=== PATIENT | male | born 1950 | race Caucasian/White ===

== ENCOUNTER → 2017-03-13 | Outpatient (REF) | payer BC, MEDICARE ==
[~2017-03-13] MED LIST: ASPI81TA83 OR; SIMV10TA2 OR; VIT D 2000 PO
[2017-03-13 11:07] LABS: BASO % 0.7 % (0.0-1.0); EOS # 0.2 K/mm3 (0.0-0.50); EOS % 5.4 % (0.0-3.0); LARGE UNSTAINED CELL # 0.1 K/mm3 (0.0-0.4); LARGE UNSTAINED CELL % 2.5 % (0.0-4.0); LYMPH # 1.4 K/mm3 (1.5-4.5); MEAN CORPUSCULAR HGB CONC 34.4 g/dl (32.0-36.5); MEAN CORPUSCULAR VOLUME 87.1 fl (80.0-96.0); MONO # 0.3 K/mm3 (0.0-0.8); MONO % 5.8 % (0.0-5.0); NEUTROPHILS # 2.7 K/mm3 (1.8-7.7); NEUTROPHILS % 57.7 % (36.0-66.0); PLATELET COUNT, AUTOMATED 226 k/mm3 (150-450); RED CELL DISTRIBUTION WIDTH 13.2 % (11.5-14.5); WHITE BLOOD COUNT 4.7 K/mm3 (4.0-10.0)
[2017-03-13 11:32] LABS: VITAMIN B12 LEVEL 233 PG/ML (247-911)
[2017-03-13 11:36] LABS: ALBUMIN/GLOBULIN RATIO 1.33 (1.00-1.93); ALKALINE PHOSPHATASE 72 U/L (45-117); ALT/SGPT 17 U/L (12-78); ANION GAP 7 MEQ/L (8-16); AST/SGOT 18 U/L (15-37); BILIRUBIN,TOTAL 0.4 MG/DL (0.2-1.0); BLOOD UREA NITROGEN 10 MG/DL (7-18); CALCIUM LEVEL 8.8 MG/DL (8.8-10.2); CARBON DIOXIDE LEVEL 28 MEQ/L (21-32); CHLORIDE LEVEL 102 MEQ/L (98-107); CHOLESTEROL LEVEL 124 MG/DL (<200); CREATININE FOR GFR 0.94 MG/DL (0.70-1.30); GLOMERULAR FILTRATION RATE > 60.0 (>49); GLUCOSE, FASTING 86 MG/DL (80-110); POTASSIUM SERUM 4.4 MEQ/L (3.5-5.1); SODIUM LEVEL 137 MEQ/L (136-145); TRIGLYCERIDES LEVEL 98 MG/DL (<150)
[2017-03-14 12:00] LABS: FERRITIN 62 NG/ML (26-388); PERCENT SATURATION 25.6 % (19.7-37.4); TOTAL IRON BINDING CAPACITY 332 UG/DL (250-450)
== END ==
LOC: M LABDRAW1 10:47
PROVIDERS: ATTEND Internal Medicine
DX: D64.9 Anemia, unspecified (principal); I10 Essential (primary) hypertension; E78.00 Pure hypercholesterolemia, unspecified; R53.83 Other fatigue; Z12.5 Encounter for screening for malignant neoplasm of prostate; Z11.59 Encounter for screening for other viral diseases
CPT/HCPCS: 36415; 80053; 80061; 82306; 82607; 82728; 83036; 83550; 84443; 85025; 86803; G0103

== ENCOUNTER → 2017-09-03 | Outpatient (REF) | payer BC, MEDICARE ==
[2017-09-03 12:15] LABS: DRVV SCREEN 34.8 SEC
[2017-09-03 12:28] LABS: PTT LUPUS TYPE ANTICOAG SCREEN 0.9 (0-1.2)
[2017-09-03 12:30] LABS: ALBUMIN 3.9 GM/DL (3.2-5.2); ALBUMIN/GLOBULIN RATIO 1.39 (1.00-1.93); ALKALINE PHOSPHATASE 76 U/L (45-117); ALT/SGPT 17 U/L (12-78); ANION GAP 4 MEQ/L (8-16); AST/SGOT 19 U/L (7-37); BILIRUBIN,TOTAL 0.3 MG/DL (0.2-1.0); BLOOD UREA NITROGEN 12 MG/DL (7-18); CALCIUM LEVEL 8.9 MG/DL (8.8-10.2); CARBON DIOXIDE LEVEL 28 MEQ/L (21-32); CHLORIDE LEVEL 107 MEQ/L (98-107); CHOLESTEROL LEVEL 116 MG/DL (<200); CHOLESTEROL RISK RATIO 2.577 (<5); GLOMERULAR FILTRATION RATE > 60.0 (>49); GLUCOSE, FASTING 97 MG/DL (80-110); HDL CHOLESTEROL 45 MG/DL (>40); LDL CHOLESTEROL 55.8 MG/DL (<100); NON-HDL-C 71 MG/DL; POTASSIUM SERUM 4.4 MEQ/L (3.5-5.1); RHEUMATOID FACTOR QUANT < 10.0 IU/ML (0-15.0); SODIUM LEVEL 139 MEQ/L (136-145); TOTAL PROTEIN 6.7 GM/DL (6.4-8.2); TRIGLYCERIDES LEVEL 76 MG/DL (<150)
[2017-09-03 12:40] LABS: ESTIMATED AVERAGE GLUCOSE 123 MG/DL (60-110); HEMOGLOBIN A1c 5.9 %
[2017-09-03 13:05] LABS: ERYTHROCYTE SEDIMENTATION RATE 5 mm/hr (0-20)
[2017-09-03 13:08] LABS: BASO % 0.4 % (0.0-1.0); EOS # 0.4 10^3/uL (0.0-0.50); EOS % 8.3 % (0.0-3.0); HEMATOCRIT 40.7 % (42.0-52.0); HEMOGLOBIN 13.4 g/dl (14.0-18.0); IMMATURE GRANULOCYTE % 0.2 % (0-0); LYMPH # 1.7 10^3/uL (1.5-4.5); LYMPH % 35.9 % (24.0-44.0); MEAN CORPUSCULAR HEMOGLOBIN 28.9 pg (27.0-33.0); MEAN CORPUSCULAR HGB CONC 32.9 g/dl (32.0-36.5); MEAN CORPUSCULAR VOLUME 87.9 fl (80.0-96.0); MONO # 0.4 10^3/uL (0.0-0.8); MONO % 8.9 % (0.0-5.0); NEUTROPHILS # 2.2 10^3/uL (1.8-7.7); NEUTROPHILS % 46.3 % (36.0-66.0); PLATELET COUNT, AUTOMATED 251 10^3/uL (150-450); RED BLOOD COUNT 4.63 10^6/uL (4.30-6.10); RED CELL DISTRIBUTION WIDTH 13.6 % (11.5-14.5); WHITE BLOOD COUNT 4.7 10^3/uL (4.0-10.0)
[2017-09-03 13:28] LABS: FOLATE 8.9 NG/ML (>5.4); TOTAL 25(OH) VITAMIN D 41.2 NG/ML (30.0-100.0); VITAMIN B12 LEVEL 586 PG/ML (247-911)
[2017-09-06 11:06] LABS: ALBUMIN 4.03 GM/DL (3.29-5.55); ALBUMIN % 60.2 % (55.8-66.1); ALPHA-1-GLOBULINS 0.27 GM/DL (0.17-0.41); ALPHA-2-GLOBULINS 0.68 GM/DL (0.42-0.99); ALPHA-2-GLOBULINS % 10.1 % (7.1-11.8); BETA-1-GLOBULINS 0.43 GM/DL (0.28-0.60); BETA-1-GLOBULINS % 6.4 % (4.7-7.2); BETA-2-GLOBULINS 0.31 GM/DL (0.19-0.55); BETA-2-GLOBULINS % 4.7 % (3.2-6.5); GAMMA GLOBULIN % 14.6 % (11.1-18.8); GAMMA GLOBULINS 0.98 GM/DL (0.65-1.58)
[2017-09-09 14:11] LABS: ANTINUCLEAR ANTIBODIES DIRECT Negative (Negative); VITAMIN B6,PYRIDOXAL PHOSPHATE 12.8 ug/L (5.3-46.7)
[2017-09-09 14:11] LABS: VITAMIN B1 LEVEL WHOLE BLOOD 100.2 nmol/L (66.5-200.0)
== END ==
LOC: M LABDRAW1 10:32
DX: R51 Headache (principal)
CPT/HCPCS: 82746

== ENCOUNTER → 2018-02-05 | Outpatient (REF) | payer BC, MEDICARE ==
[2018-02-05 13:06] LABS: HEMOGLOBIN 14.2 g/dl (13.5-17.5); MEAN CORPUSCULAR HEMOGLOBIN 28.5 pg (27.0-33.0); MEAN CORPUSCULAR HGB CONC 32.3 g/dl (32.0-36.5); MEAN CORPUSCULAR VOLUME 88.4 fl (80.0-96.0); PLATELET COUNT, AUTOMATED 272 10^3/uL (150-450); RED BLOOD COUNT 4.98 10^6/uL (4.30-6.10); WHITE BLOOD COUNT 6.4 10^3/uL (4.0-10.0)
[2018-02-05 13:24] LABS: ALBUMIN 3.7 GM/DL (3.2-5.2); ALBUMIN/GLOBULIN RATIO 1.09 (1.00-1.93); ALKALINE PHOSPHATASE 76 U/L (45-117); ALT/SGPT 23 U/L (12-78); ANION GAP 8 MEQ/L (8-16); AST/SGOT 27 U/L (7-37); BILIRUBIN,TOTAL 0.4 MG/DL (0.2-1.0); BLOOD UREA NITROGEN 14 MG/DL (7-18); CALCIUM LEVEL 8.7 MG/DL (8.8-10.2); CARBON DIOXIDE LEVEL 29 MEQ/L (21-32); CHLORIDE LEVEL 106 MEQ/L (98-107); CHOLESTEROL LEVEL 147 MG/DL (<200); CHOLESTEROL RISK RATIO 2.882 (<5); CREATININE FOR GFR 0.91 MG/DL (0.70-1.30); GLOMERULAR FILTRATION RATE > 60.0 (>49); GLUCOSE, FASTING 80 MG/DL (70-100); HDL CHOLESTEROL 51 MG/DL (>40); LDL CHOLESTEROL 80.4 MG/DL (<100); NON-HDL-C 96 MG/DL; POTASSIUM SERUM 4.4 MEQ/L (3.5-5.1); PSA SCREENING 0.17 NG/ML (< 4.0); SODIUM LEVEL 143 MEQ/L (136-145); TOTAL PROTEIN 7.1 GM/DL (6.4-8.2); TRIGLYCERIDES LEVEL 78 MG/DL (<150)
[2018-02-05 13:26] LABS: ERYTHROCYTE SEDIMENTATION RATE 2 mm/hr (0-20)
[2018-02-05 13:38] LABS: ESTIMATED AVERAGE GLUCOSE 114 MG/DL (60-110); HEMOGLOBIN A1c 5.6 %
[2018-02-06 07:31] LABS: AMYLASE 69 U/L (25-115); LIPASE 114 U/L (73-393)
[2018-02-07 00:09] LABS: H PYLORI SERUM QUANT IGM <9.0 units (0.0-8.9)
== END ==
LOC: M LABDRAW1 12:32
DX: Z12.5 Encounter for screening for malignant neoplasm of prostate (principal); R10.12 Left upper quadrant pain; Z79.899 Other long term (current) drug therapy; I10 Essential (primary) hypertension; E78.00 Pure hypercholesterolemia, unspecified
CPT/HCPCS: 82150

== ENCOUNTER → 2018-02-11 | Outpatient (CLI) | payer BC, MEDICARE ==
[~2018-02-11] MED LIST changes: -ASPI81TA83 OR; +GASTROGRAFIN SOLUTION 30ML (Q9963) As Ordered; +ISOVUE-370 76% 100ML VIAL (Q9967) As Ordered; +READI-CAT 2 As Ordered; -SIMV10TA2 OR; -VIT D 2000 PO
== END ==
LOC: M RAD 15:52
DX: R10.12 Left upper quadrant pain (principal)
CPT/HCPCS: Q9967

== ENCOUNTER → 2019-02-04 | Outpatient (CLI) | payer BC ==
[~2019-02-04] MED LIST changes: +ASPI81TA83 OR; -GASTROGRAFIN SOLUTION 30ML (Q9963) As Ordered; -ISOVUE-370 76% 100ML VIAL (Q9967) As Ordered; -READI-CAT 2 As Ordered; +SIMV10TA2 OR; +VIT D 2000 PO
--- NOTE | 2019-02-05 07:17 | REP ---
CHEST, TWO VIEWS: COMPARISON: 02/17/2009 There is no evidence of acute infiltrate. No pleural effusion is seen. The heart is normal in size. The mediastinal silhouette is unremarkable. The visualized osseous structures are intact. There are degenerative changes of the spine. IMPRESSION: No acute pulmonary disease. Electronically Signed by Jonathan Maldonado MD 02/05/2019 09:15 A
== END ==
LOC: M RAD 17:09
PROVIDERS: ATTEND Pediatrics
DX: R05 Cough (principal)

== ENCOUNTER → 2019-02-24 | Outpatient (CLI) | payer BC ==
--- NOTE | 2019-02-24 08:54 | REP ---
Pelvis, left hip: Three views. History: Iliac crest pain. Comparison is made with images from CT study of the abdomen February 11, 2018. Findings: AP view of the pelvis and AP and frog-leg views of the left hip are presented. The femoral heads are smooth and rounded and hip joint spaces are preserved. Transitionalized lumbosacral junction is seen. SI joints are unremarkable. Laminectomy has been performed at L3. There is spurring along the anterolateral contour of the iliac bone bilaterally consistent with muscle attachment spurring. This is bilateral, symmetric and benign in appearance. Bones, joints and soft tissues are otherwise unremarkable. Impression: Mild muscle attachment spurring in the region of the anterior inferior iliac spine bilaterally and symmetrically. Otherwise unremarkable pelvis, left hip radiographs. Transitionalized lumbosacral junction. Laminectomy defect in the lower lumbar spine. Electronically Signed by Eliezer Jerez MD 02/24/2019 04:43 P
== END ==
LOC: M RAD 08:00
PROVIDERS: ATTEND Specialist
DX: M25.552 Pain in left hip (principal); M77.9 Enthesopathy, unspecified

== ENCOUNTER → 2019-03-18 | Outpatient (REF) | payer BC, MEDICARE ==
[2019-03-18 12:48] LABS: HEMATOCRIT 41.6 % (42.0-52.0); HEMOGLOBIN 13.6 g/dl (13.5-17.5); MEAN CORPUSCULAR HEMOGLOBIN 28.5 pg (27.0-33.0); MEAN CORPUSCULAR HGB CONC 32.7 g/dl (32.0-36.5); MEAN CORPUSCULAR VOLUME 87.2 fl (80.0-96.0); PLATELET COUNT, AUTOMATED 246 10^3/uL (150-450); RED BLOOD COUNT 4.77 10^6/uL (4.30-6.10); WHITE BLOOD COUNT 4.5 10^3/uL (4.0-10.0)
[2019-03-18 12:51] LABS: ALBUMIN 3.9 GM/DL (3.2-5.2); ALT/SGPT 17 U/L (12-78); BILIRUBIN,TOTAL 0.4 MG/DL (0.2-1.0); BLOOD UREA NITROGEN 14 MG/DL (7-18); C REACTIVE PROTEIN QUANTITATIV < 0.30 MG/DL (0.00-0.30); CALCIUM LEVEL 8.9 MG/DL (8.8-10.2); CARBON DIOXIDE LEVEL 27 MEQ/L (21-32); CHLORIDE LEVEL 106 MEQ/L (98-107); CHOLESTEROL LEVEL 135 MG/DL (<200); CREATININE FOR GFR 0.95 MG/DL (0.70-1.30); GLOMERULAR FILTRATION RATE > 60.0 (>49); GLUCOSE, FASTING 84 MG/DL (70-100); HDL CHOLESTEROL 50 MG/DL (>40); LDL CHOLESTEROL 74 MG/DL (<100); NON-HDL-C 85 MG/DL; POTASSIUM SERUM 4.3 MEQ/L (3.5-5.1); SODIUM LEVEL 140 MEQ/L (136-145); TOTAL PROTEIN 7.2 GM/DL (6.4-8.2); TRIGLYCERIDES LEVEL 57 MG/DL (<150)
[2019-03-18 12:58] LABS: TOTAL 25(OH) VITAMIN D 41.8 NG/ML (30.0-100.0)
[2019-03-18 12:59] LABS: FOLATE 10.3 NG/ML; VITAMIN B12 LEVEL 385 PG/ML
[2019-03-18 13:43] LABS: HEMOGLOBIN A1c 5.8 %
[2019-03-18 13:55] LABS: ERYTHROCYTE SEDIMENTATION RATE 5 mm/hr (0-20)
== END ==
LOC: M LABDRAW1 12:10
PROVIDERS: ATTEND Internal Medicine
DX: E55.9 Vitamin D deficiency, unspecified (principal); Z13.1 Encounter for screening for diabetes mellitus; E53.8 Deficiency of other specified B group vitamins; I10 Essential (primary) hypertension; E78.00 Pure hypercholesterolemia, unspecified; Z79.899 Other long term (current) drug therapy; Z12.5 Encounter for screening for malignant neoplasm of prostate; M89.8X8 Other specified disorders of bone, other site
CPT/HCPCS: 36415; 80053; 80061; 82306; 82607; 82746; 83036; 83735; 85027; 85652; 86140; G0103

== ENCOUNTER → 2019-06-12 | Outpatient (REF) | payer BC, MEDICARE ==
[2019-06-12 11:22] LABS: BLOOD UREA NITROGEN 17 MG/DL (7-18); CALCIUM LEVEL 9.3 MG/DL (8.8-10.2); CARBON DIOXIDE LEVEL 31 MEQ/L (21-32); CHLORIDE LEVEL 105 MEQ/L (98-107); CREATININE FOR GFR 0.98 MG/DL (0.70-1.30); GLOMERULAR FILTRATION RATE > 60.0 (>42); GLUCOSE, FASTING 96 MG/DL (70-100); POTASSIUM SERUM 4.9 MEQ/L (3.5-5.1); SODIUM LEVEL 141 MEQ/L (136-145)
[2019-06-12 12:35] LABS: HEMOGLOBIN A1c 5.6 %
== END ==
LOC: M SFHCPLAZ 08:42
PROVIDERS: ATTEND Internal Medicine
DX: Z01.818 Encounter for other preprocedural examination (principal); E78.00 Pure hypercholesterolemia, unspecified

== ENCOUNTER → 2019-07-28 | Outpatient (CLI) | payer BC ==
--- NOTE | 2019-07-28 11:09 | REP ---
MRI left hip and pelvis and iliac crest. Without contrast. History: Iliac crest bone pain and hip pain on the left. The patient describes pain along the superior margin of the iliac crest on the left laterally. Comparison radiographs February 24, 2019. Comparison is made with CT images obtained of the abdomen, not the pelvis, from February 11, 2018. Technique: Large field of view bilateral coronal T1 and STIR T2 sequences are acquired. In addition, smaller field of view high resolution T2 fat sat imaging is obtained of the left hip in all three planes. The axial T2 fat sat sequence is extended cranially to include the iliac crest. Findings: Cortical and medullary bone signal intensity is normal in the proximal femurs and in the visualized bony pelvic ring. There is no evidence to suggest avascular necrosis. There is some acetabular and femoral spurring mild in degree bilaterally consistent with bilateral hip osteoarthritis. Tiny subcortical cysts are seen along the superior and inferior margin of the femoral head on the left. Chondromalacia is noted on small field of view images on the left. There are some degenerative changes bilaterally in the acetabular labral cartilage. There is a small amount of joint fluid in the right hip. No peritrochanteric fluid collection is appreciated on either side. The pelvic radiographs demonstrate a tiny exostosis at the level of the anterior inferior iliac spine, rectus femoris insertion. At this level, there is a tiny amount of T2 hyperintensity in the lateral aspect of the tendon insertion. The bulk of the tendon insertion is unremarkable. This T2 signal intensity is quite subtle. There is actually more conspicuous fluid on T2-weighted axial images along the course of the distal iliopsoas muscle and tendon above the left hip and distal to the left hip, just above the insertion on the lesser trochanter. This may reflect iliopsoas tendinosis tendonitis change. This is considerably inferior to the level of the patient's pain. T2-weighted scans demonstrate minimal hypertrophy of the central gland in the prostate with some T2 hyperintense cysts or nodules. Impression: 1. Mild bilateral hip joint osteoarthritis. Chondromalacia and subcortical cyst formation. Degenerative acetabular labral cartilage changes. 2. There is some fluid above and below the hip along the course of the iliopsoas on the left extending down to the distal insertion on the lesser trochanter. 3. Very subtle amount of fluid is seen at the rectus femoris insertion, laterally, at the anterior inferior iliac spine. No other abnormality. Electronically Signed by Eliezer Jerez MD 07/28/2019 11:01 A
== END ==
LOC: M RAD 07:21
PROVIDERS: ATTEND Internal Medicine
DX: M16.0 Bilateral primary osteoarthritis of hip (principal); M85.48 Solitary bone cyst, other site; M94.252 Chondromalacia, left hip

== ENCOUNTER → 2020-03-03 | Outpatient (REF) | payer BC, MEDICARE ==
[2020-03-03 13:00] LABS: BASO % 0.6 % (0.0-1.0); EOS # 0.6 10^3/uL (0.0-0.5); EOS % 9.3 % (0.0-3.0); HEMATOCRIT 45.8 % (42.0-52.0); HEMOGLOBIN 14.3 g/dl (13.5-17.5); LYMPH # 2.4 10^3/uL (1.5-5.0); LYMPH % 36.5 % (24.0-44.0); MEAN CORPUSCULAR HEMOGLOBIN 28.7 pg (27.0-33.0); MEAN CORPUSCULAR HGB CONC 31.2 g/dl (32.0-36.5); MONO # 0.5 10^3/uL (0.0-0.8); MONO % 7.6 % (0.0-5.0); NEUTROPHILS % 45.8 % (36.0-66.0); PLATELET COUNT, AUTOMATED 254 10^3/uL (150-450); RED BLOOD COUNT 4.98 10^6/uL (4.30-6.10); WHITE BLOOD COUNT 6.6 10^3/uL (4.0-10.0)
[2020-03-03 13:07] LABS: HEMATOCRIT 44.9 % (42.0-52.0); HEMOGLOBIN 14.5 g/dl (13.5-17.5); MEAN CORPUSCULAR HEMOGLOBIN 29.5 pg (27.0-33.0); MEAN CORPUSCULAR HGB CONC 32.3 g/dl (32.0-36.5); MEAN CORPUSCULAR VOLUME 91.3 fl (80.0-96.0); PLATELET COUNT, AUTOMATED 254 10^3/uL (150-450); RED BLOOD COUNT 4.92 10^6/uL (4.30-6.10); WHITE BLOOD COUNT 6.4 10^3/uL (4.0-10.0)
[2020-03-03 13:35] LABS: TOTAL 25(OH) VITAMIN D 36.9 NG/ML (30.0-100.0)
[2020-03-03 13:41] LABS: ALBUMIN 4.1 GM/DL (3.2-5.2); ALT/SGPT 21 U/L (12-78); BILIRUBIN,TOTAL 0.6 MG/DL (0.2-1.0); BLOOD UREA NITROGEN 15 MG/DL (7-18); CALCIUM LEVEL 9.2 MG/DL (8.8-10.2); CARBON DIOXIDE LEVEL 29 MEQ/L (21-32); CHLORIDE LEVEL 105 MEQ/L (98-107); CHOLESTEROL LEVEL 138 MG/DL (<200); CHOLESTEROL RISK RATIO 3.136 (<5); CREATININE FOR GFR 1.03 MG/DL (0.70-1.30); GLOMERULAR FILTRATION RATE > 60.0 (>42); GLUCOSE, FASTING 86 MG/DL (70-100); HDL CHOLESTEROL 44 MG/DL (>40); LDL CHOLESTEROL 76 MG/DL (<100); MAGNESIUM LEVEL 2.2 MG/DL (1.8-2.4); NON-HDL-C 94 MG/DL; POTASSIUM SERUM 4.9 MEQ/L (3.5-5.1); SODIUM LEVEL 139 MEQ/L (136-145); TOTAL PROTEIN 7.4 GM/DL (6.4-8.2); TRIGLYCERIDES LEVEL 89 MG/DL (<150)
[2020-03-03 17:41] LABS: HEMOGLOBIN A1c 5.3 %
== END ==
LOC: M PLALAB 08:02
PROVIDERS: ATTEND Internal Medicine
DX: R10.12 Left upper quadrant pain (principal); I10 Essential (primary) hypertension; Z13.1 Encounter for screening for diabetes mellitus; E78.00 Pure hypercholesterolemia, unspecified; Z12.5 Encounter for screening for malignant neoplasm of prostate; R00.2 Palpitations; Z79.899 Other long term (current) drug therapy
CPT/HCPCS: 36415; 80053; 80061; 82306; 82607; 83036; 83735; 84443; 85025; 85027; G0103

== ENCOUNTER → 2020-09-28 | Outpatient (REF) | payer BC, MEDICARE | LOC: M SFHCPLAZ 08:08 | PROVIDERS: ATTEND Internal Medicine | DX: Z20.828 Contact with and (suspected) exposure to other viral communicable diseases (principal) ==

== ENCOUNTER → 2021-03-08 | Outpatient (CLI) | payer BC ==
[2021-03-08 10:24] LABS: BASO % 0.7 % (0.0-1.0); EOS # 0.4 10^3/uL (0.0-0.5); EOS % 6.7 % (0.0-3.0); HEMATOCRIT 43.9 % (42.0-52.0); HEMOGLOBIN 14.1 g/dl (13.5-17.5); LYMPH # 2.5 10^3/uL (1.5-5.0); LYMPH % 42.3 % (24.0-44.0); MEAN CORPUSCULAR HEMOGLOBIN 28.6 pg (27.0-33.0); MEAN CORPUSCULAR HGB CONC 32.1 g/dl (32.0-36.5); MONO # 0.5 10^3/uL (0.0-0.8); MONO % 9.2 % (2.0-8.0); NEUTROPHILS # 2.4 10^3/uL (1.5-8.5); NEUTROPHILS % 40.9 % (36.0-66.0); PLATELET COUNT, AUTOMATED 254 10^3/uL (150-450); RED BLOOD COUNT 4.93 10^6/uL (4.30-6.10); WHITE BLOOD COUNT 5.9 10^3/uL (4.0-10.0)
[2021-03-08 10:45] LABS: HEMOGLOBIN A1c 5.6 %
[2021-03-08 10:54] LABS: ALBUMIN 4.2 GM/DL (3.2-5.2); ALT/SGPT 24 U/L (12-78); BILIRUBIN,TOTAL 0.6 MG/DL (0.2-1.0); BLOOD UREA NITROGEN 15 MG/DL (7-18); CALCIUM LEVEL 9.1 MG/DL (8.8-10.2); CARBON DIOXIDE LEVEL 32 MEQ/L (21-32); CHLORIDE LEVEL 105 MEQ/L (98-107); CHOLESTEROL LEVEL 145 MG/DL (<200); CHOLESTEROL RISK RATIO 2.636 (<5); CREATININE FOR GFR 0.98 MG/DL (0.70-1.30); GLOMERULAR FILTRATION RATE > 60.0 (>42); GLUCOSE, FASTING 90 MG/DL (70-100); HDL CHOLESTEROL 55 MG/DL (>40); LDL CHOLESTEROL 76 MG/DL (<100); MAGNESIUM LEVEL 2.2 MG/DL (1.8-2.4); NON-HDL-C 90 MG/DL; POTASSIUM SERUM 4.3 MEQ/L (3.5-5.1); SODIUM LEVEL 139 MEQ/L (136-145); TOTAL PROTEIN 7.1 GM/DL (6.4-8.2); TRIGLYCERIDES LEVEL 70 MG/DL (<150)
[2021-03-08 10:57] LABS: TOTAL 25(OH) VITAMIN D 46.5 NG/ML (30.0-100.0); VITAMIN B12 LEVEL 672 PG/ML (247-911)
== END ==
LOC: M PLALAB 07:52
PROVIDERS: ATTEND Internal Medicine
DX: Z00.00 Encounter for general adult medical examination without abnormal findings (principal); E78.00 Pure hypercholesterolemia, unspecified; I10 Essential (primary) hypertension; Z12.5 Encounter for screening for malignant neoplasm of prostate; E53.8 Deficiency of other specified B group vitamins; E55.9 Vitamin D deficiency, unspecified
CPT/HCPCS: 36415; 80053; 80061; 82306; 82607; 83036; 83735; 85025; G0103

== ENCOUNTER → 2021-03-27 | Outpatient (CLI) | payer BC, MEDICARE ==
[~2021-03-27] MED LIST changes: +ASPI81CH33 PO; +LISI10TA22 PO; +SIMV20TA22 PO
== END ==
LOC: M PLAIMG 08:26
PROVIDERS: ATTEND Internal Medicine
DX: M25.571 Pain in right ankle and joints of right foot (principal)

== ENCOUNTER → 2021-04-13 | Outpatient (CLI) | payer BC, MEDICARE ==
[~2021-04-13] MED LIST changes: -ASPI81CH33 PO; -LISI10TA22 PO; -SIMV20TA22 PO
--- NOTE | 2021-04-13 14:23 | REP ---
INDICATION: PAIN RT FOOT W/ ACQUIRED DEFORMITIES. COMPARISON: Comparison radiographs of the right ankle are from March 27, 2021. TECHNIQUE: Axial, coronal, and sagittal imaging planes utilized. T1 and T2 weighted sequences are obtained with and without fat saturation in the usual fashion. FINDINGS: There is mild plantar calcaneal spurring. Plantar fascia are smooth. There is no evidence of significant joint effusion. There are osteoarthritic changes at the ankle with subcortical cyst formation involving the lateral talar dome as well as the adjacent subcortical surface of the distal fibula and, to a lesser degree, the adjacent surface of the anterolateral tibial plafond. There is joint space narrowing in the tibiotalar articulation. There are similar subcortical cysts on either side of the central subtalar articulation. There is mild spurring and sclerosis associated with the talonavicular articulation. No significant joint effusion is seen. There is not felt to be evidence of osteochondritis desiccans. No evidence of loose body. Achilles tendon is normal in course caliber and signal intensity. No ligamentous disruption is seen at the ankle. Tibialis posterior tendon, flexor digitorum, and flexor hallucis longus tendons appear intact medially. The peroneus tendons appear intact. No evidence of extensor tendinopathy. IMPRESSION: Osteoarthritic changes involving the tibiotalar, talofibular, subtalar, and talonavicular articulations. There is arthritis associated subcortical cyst formation at these locations; particularly the lateral aspect of the tibiotalar articulation and the talofibular articulation. No evidence to suggest loose body or osteochondritis dissecans.. <Electronically signed by Azael Jerez > 04/13/21 [id number]
--- NOTE | 2021-04-13 14:44 | REP ---
INDICATION: PAIN RT FOOT W/ ACQUIRED DEFORMITIES. COMPARISON: Comparison radiographs of the right ankle are from March 27, 2021. TECHNIQUE: Axial, coronal, and sagittal imaging planes utilized. T1 and T2 weighted sequences are obtained with and without fat saturation. Right foot MRI study. FINDINGS: There are arthropathy associated subcortical cyst changes in the distal fibula, the lateral talar dome, and the anterolateral tibial plafond, see ankle MRI report this same date. The medial subtalar articulation is abnormal with irregularity and narrowing. I cannot exclude a fibrous talocalcaneal tarsal coalition versus medial facet subtalar joint osteoarthritis. There is mild osteoarthritic spurring and joint space narrowing in the talar navicular articulation. The plantar arch is somewhat shallow. There is plantar calcaneal spurring. Plantar fascia is smooth. No metatarsal or phalangeal abnormality is appreciated. There is a small quantity of fluid at the 1st MTP joint. No soft tissue mass or cyst is seen. IMPRESSION: Irregularity narrowing and subcortical cyst formation in the medial facet of the subtalar for fibrous joint, question talocalcaneal tarsal coalition versus osteoarthritis. There are osteo arthritis associated subcortical cysts formed at the ankle as described in the ankle MRI report. The plantar arch is somewhat shallow. Osteoarthritic spurring is also noted at the talonavicular articulation. <Electronically signed by Azael Jerez > 04/13/21 [id number]
== END ==
LOC: M PLAIMG 12:53
PROVIDERS: ATTEND Orthopaedic Surgery Adult Reconstructive Orthopaedic Surgery
DX: M19.071 Primary osteoarthritis, right ankle and foot (principal); M79.671 Pain in right foot; M21.6X1 Other acquired deformities of right foot

== ENCOUNTER → 2021-06-26 | Outpatient (CLI) | payer BC ==
[~2021-06-26] MED LIST changes: +ASPI81CH33 PO; +LISI10TA22 PO; +SIMV20TA22 PO
== END ==
LOC: M LABSMTC 10:18
PROVIDERS: ATTEND Anesthesiology
DX: Z01.812 Encounter for preprocedural laboratory examination (principal); Z11.52 Encounter for screening for COVID-19

== ENCOUNTER 2021-06-30 09:14 | Day surgery (SDC) | payer BC ==
[~2021-06-30] VITALS: Ht 172.7 cm; Wt 69.9 kg
[~2021-06-30 09:14] MED LIST changes: +NS 1,000 ML IV ONE
--- OUTSIDE RECORDS SUMMARY | 2021-06-30 09:19 | CCD | Continuity of Care Document ---
Author Author Gilda MA M.D Organization Unknown Address [address] [place] [id number] Phone [phone] Care Team Providers Care Wild Animal Caretaker Name Role Phone Pal Wheatley M.D. AUTM [phone] Problems Active Problems Provider Date Abdominal pain Jose Ma M.D. Onset: 05/23/20 21 Social History Type Date Description Comments Sex Unknown ETOH Use Occasionally Tobacco Use Start: Unknown Patient has never smoked Allergies and adverse reactions Active Allergies Criticality Reaction | Severity Comments Date Iodine Unable to assess criticality 05/23/2021 Contrast Dye Unable to assess criticality 05/23/2021 Medications Active Medications SIG Qnty Indications Ordering Provide r Date Pantoprazole Sodium 40mg Tablets D R 1 tab by mouth every morning 90tabs Jose Ma M.D. 05/23/2021 Lisinopril 10mg Tablets Pal Wheatley M.D. Simvastatin 20mg Tablets Take 1 Tablet By Mouth Every Evening Unknown Aspirin Low Dose 81mg Tablets DR Unknown Immunizations Description No Information Available Vital Signs Date Vital Result Comment 05/23/2021 8:54am Height 68 inches 5'8" Weight 156.00 lb BP Systolic 130 mmHg BP Diastolic 86 mmHg Heart Rate 86 /min BMI (Body Mass Index) 23.7 kg/m2 Weight 70.762 kg Body Temperature 97.7 F Results Description No Information Available Procedures Date Code Description Status 05/23/2021 55544 Office/Outpatient New Low MDM 30 -44 Minutes Completed Medical Devices Description No Information Available Encounters Type Date Location Provider Dx Diagnosis Office Visit 05/23/2021 8:45a Main Office Jose Ma M.D. R 10.9 Unspecified abdominal pain Assessments Date Code Description Provider 05/23/2021 R10.9 Abdominal pain Jose wallace M.D. Plan of Treatment Future Appointment(s):* 06/30/2021 1:45 pm - Jose Ma M.D. at Main Office 05/23/2021 - Jose Ma M.D.* R10.9 Abdominal pain* New Xrays:* CT Abd & Pelvis, Ordered: 05/23/21 * Comments:* 71 yo m who presents for a h/o upper, and left sided abdominal pain for the last 3 to 4 weeks. Last scopes were in 2013. Positive c/o abdominal pain mostly luq. Has daily symptoms. Weight is down. No c/o nausea/vomiting. Plan:1. Abdominal ct scan for early satiety/abdominal pain/weight loss.2. Colonoscopy /egd to be set up.3. Pantoprazole 40 mgs po qam.4. Heating pad. Functional Status Description No Information Available Mental Status Description No Information Available Referrals Description No Information Available
--- OUTSIDE RECORDS SUMMARY | 2021-06-30 09:19 | CCD ---
Author Author Antolin Schumacher MD [facility] Organization Antolin Schumacher MD [facility] Address [phone] [address] Phone Care Team Providers Care Director Of Channel Marketing Name Role Phone Winsome SANCHEZ, Antolin GUIDRY Unavailable [phone] Corry SANCHEZ, Pal PP [phone] Reason for Referral No Reason for Referral Recorded Problems Includes: Active, inactive, and resolved Problems All Visits Onset Date - Time Resolved Date - Time Provider Co ndition Status Pseudophakia 03/08/2020 - 12:00AM Antolin Schumacher MD, FACS Active Dry Eye Syndrome 03/06/2019 - 12:00AM Antolin clark MD, FACS Active Cataract Senile Cortical Bilateral 03/04/2018 - 12:00AM 03/08/20 20 - 7:23AM Antolin Schumacher MD, FACS Resolved Vitreous Disorders Degeneration 10/05/2015 - 12:00AM Antolin Schumacher MD, FACS 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 Antolin Albarran MD, FACS Active Cataract Senile Cortical 07/20/2015 - 12:00AM 03/08/2020 - 7:23A M Antolin Schumacher MD, FACS Resolved Note: of both eyes 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: 00AM Antolin Schumacher MD, FACS Active Cataract Senile Posterior Subcapsular Polar 07/20/2015 - 12: 00AM 03/08/2020 - 7:23AM Antolin Schumacher MD, FACS Resolved Note: of both eyes Cataract Senile Nuclear 07/20/2015 - 12:00AM 03/08/2020 - 7:23AM Antolin Paris MD, FACS Resolved Note: of both eyes Dry Eye Syndrome Both Eyes 07/20/2015 - 12:00AM Antolin Schumacher MD, FACS Inactive Plan of Treatment Future Appointments Date Time Location Provider 1 Year Follow-Up 05/01/2022 7:30AM Antolin Schumacher MD [facility] Antolin Schumacher MD, FACS Assessments Includes: Assessments for all patient encounters Findings Encounter Date Dry eye syndrome 1 Year Follow-Up with Antolin bertrand MD, FACS 03/08/2020 Pseudophakia 1 Year Follow-Up with Antolin bertrand MD, FACS 03/08/2020 Vitreous degeneration 1 Year Follow-Up with Antolin clark MD, FACS 03/08/2020 Cortical senile cataract 1 Year Follow-Up with Antolin Ashby MD, FACS 03/06/2019 Dry eye syndrome 1 Year Follow-Up with Antolin bertrand MD, FACS 03/06/2019 Nuclear senile cataract 1 Year Follow-Up with Antolin Dover MD, FACS 03/06/2019 Posterior subcapsular polar senile cataract 1 Year Fol low-Up with Antolin Schumacher MD, FACS 03/06/2019 Vitreous degeneration 1 Year Follow-Up with Antolin clark MD, FACS 03/06/2019 Bilateral cortical senile cataract 1 Year Follow-Up [facility] Antolin Schumacher MD, FACS 03/04/2018 Dry eye syndrome of both eyes 1 Year Follow-Up with Bubba Schumacher MD, FACS 03/04/2018 Nuclear senile cataract 1 Year Follow-Up with Antolin Dover MD, FACS 03/04/2018 Posterior subcapsular polar senile cataract 1 Year Fol low-Up with Antolin Schumacher MD, FACS 03/04/2018 Vitreous degeneration 1 Year Follow-Up with Antolin clark MD, FACS 03/04/2018 Bilateral cortical senile cataract 7 Month Follow-Up w ith Antolin Schumacher MD, FACS 02/25/2017 Dry eye syndrome of both eyes 7 Month Follow-Up with Marisa Schumacher MD, FACS 02/25/2017 Nuclear senile cataract 7 Month Follow-Up with Antolin Ashby MD, FACS 02/25/2017 Posterior subcapsular polar senile cataract 7 Month Fo llow-Up with Antolin Schumacher MD, FACS 02/25/2017 Vitreous degeneration 7 Month Follow-Up with Antolin Paris MD, FACS 02/25/2017 Posterior subcapsular polar senile cataract TRIAGE NON URGENT with Antolin Schumacher MD, FACS 07/02/2016 Vitreous degeneration TRIAGE NON URGENT with Antolin Paris MD, FACS 07/02/2016 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, FACS 07/20/2015 Cortical senile cataract NEW PATIENT with Antolin bertrand MD, FACS 07/20/2015 Dry eye syndrome of both eyes NEW PATIENT with Antolin Ashby MD, FACS 07/20/2015 Exophoria NEW PATIENT with Antolin Schumacher MD, FACS 07/20/2015 Nuclear senile cataract NEW PATIENT with Antolin Schumacher MD, FACS 07/20/2015 Posterior subcapsular polar senile cataract NEW PATIEN T with Antolin Schumacher MD, FACS 07/20/2015 Vitreous degeneration NEW PATIENT with Antolin Cunningham, FACS 07/20/2015 Instructions Instructions not supported for this document typeNo Instructions Recorded Medical Equipment - Implanted Devices Includes: Current and historical DevicesNo Medical Equipment Recorded Medications Includes: Current and historical Medications Current Medications (continue as prescribed) Lisinopril 40MG Oral Tablet 03/04/2018 Provider: Diagnosis: Aspirin 81MG Oral Tablet Delayed Release 03/04/2018 Provider: Diagnosis: Past Medications on file Chlorthalidone 50 MG Tablet 07/20/2015 - 03/04/2018 Provider : Diagnosis: Medications Administered Includes: Administered Medications in patient's chartNo Administered Medications Recorded Vital Signs Includes: Vital Signs from 06/17/2020 through 06/17/2021No Vital Signs Recorded For Specified Dates Results Includes: Results from 06/17/2020 through 06/17/2021No Results Recorded For Specified Dates History of Present Illness History of Present Illness not supported for this document typeNo History of Present Illness Recorded Social History Description Last Updated No consumption of alcohol 03/08/2020 No tobacco use 03/08/2020 Not using drugs 03/08/2020 Smoking status : Never smoker 03/08/2020 Never smoked 03/06/2019 Procedures and Surgical History Surgical History Last Updated History of cataract surgery Extracapsul ar Extraction with IOL implant OS 06/17/2019 OD 07/08/2019 03/08/2020 Surgical / procedural history : Back Surgery in 2012 1 09/20/2014 Medical History Includes: Medical History in patient's chart Description Last Updated Recent change in medical history Cataract surgery OU 2019 03/08/2020 Currently wearing eyeglasses 07/20/2015 History of essential hypertension 07/20/2015 Family History Includes: Family History in patient's chart Description Last Updated Family medical history was unknown 03/08/2020 Review of Systems Review of Systems not supported for this document typeNo Review of Systems Recorded Mental Status Mental Status not supported for this document typeNo Mental Status Recorded Functional Status Functional Status not supported for this document typeNo Functional Status Recorded Physical Exam Physical Exam not supported for this document typeNo Physical Exam Recorded Immunizations Includes: Immunizations in patient's chartNo Immunizations Recorded Allergies Includes: Active, inactive, and resolved Allergies Substance Type Reaction Onset Date - Time Resolved Date - Ti me Status Zocor Allergy 07/20/2015 - 12:00AM Acti ve Encounters Includes: Encounters from 06/17/2020 through 06/17/2021 Encounter Provider Location Date Check-In Time Check-Out Time D iagnosis 1 Year Follow-Up Antolin Schumacher MD, FACS Antolin Cunningham [facility] 05/03/2021 6:54AM 7:30AM Insurance Includes: Active Insurance Policies Plan Name Member ID Group # Subscriber Relationship Effective Da rosa 1 - [employer] [id number] Sugar Moore Advance Directives Includes: Current Advance DirectivesNo Advance Directives Recorded Health Concerns Includes: Active Health ConcernsNo Active Health Concerns Recorded Goals Includes: Active GoalsNo Active Goals Recorded Interventions Includes: Interventions for active GoalsNo Interventions Recorded Evaluations & Outcomes Includes: Evaluations & Outcomes for active GoalsNo Outcomes Recorded
--- OUTSIDE RECORDS SUMMARY | 2021-06-30 09:19 | CCD ---
Author Author [facility] Organization [facility] Address Unknown Phone Unavailable Care Team Providers Care Donations Attendant Name Role Phone Lillian Ma MD Unavailable Unavailable Lillian Ma MD Unavailable Unavailable Lillian Ma MD Unavailable Unavailable Lillian Ma MD Unavailable Unavailable Lillian Ma MD Unavailable Unavailable Lillian Ma MD Unavailable Unavailable Lillian Ma MD Unavailable Unavailable Lillian Ma MD Unavailable Unavailable Lillian Ma MD Unavailable Unavailable Lillian Ma MD Unavailable Unavailable Lillian Ma MD Unavailable Unavailable Lillian Ma MD Unavailable Unavailable Lillian Ma MD Unavailable Unavailable Lillian Ma MD Unavailable Unavailable Lillian Ma MD Unavailable Unavailable Lillian Ma MD Unavailable Unavailable Lillian Ma MD Unavailable Unavailable Lillian Ma MD Unavailable Unavailable Lillian Ma MD Unavailable Unavailable Lillian Ma MD Unavailable Unavailable Lillian Ma MD Unavailable Unavailable Lillian Ma MD Unavailable Unavailable Lillian Ma MD Unavailable Unavailable Lillian Ma MD Unavailable Unavailable Lillian Ma MD Unavailable Unavailable Lillian Ma MD Unavailable Unavailable Lillian Ma MD Unavailable Unavailable Lillian Ma MD Unavailable Unavailable Lillian Ma MD Unavailable Unavailable Anil, S Jose MD Unavailable Unavailable Anil, S Jose MD Unavailable Unavailable Anil, S Jose MD Unavailable Unavailable Anil, S Jose MD Unavailable Unavailable Anil, S Jose MD Unavailable Unavailable Anil, S Jose MD Unavailable Unavailable Anil, S Jose MD Unavailable Unavailable Anil, S Jose MD Unavailable Unavailable Anil, S Jose MD Unavailable Unavailable Anil, S Jose MD Unavailable Unavailable Anil, S Jose MD Unavailable Unavailable Anil, S Jose MD Unavailable Unavailable Anil, S Jose MD Unavailable Unavailable Anil, S Jose MD Unavailable Unavailable Anil, S Jose MD Unavailable Unavailable Nail, S Jose MD Unavailable Unavailable Anil, S Jose MD Unavailable Unavailable Anil, S Jose MD Unavailable Unavailable Anil, S Jose MD Unavailable Unavailable Anil, S Jose MD Unavailable Unavailable Anil, S Jose MD Unavailable Unavailable Durham, Antolin SANCHEZ Unavailable Unavailable Durham, Antolin SANCHEZ Unavailable Unavailable Durham, Antolin SANCHEZ Unavailable Unavailable Durham, Antolin SANCHEZ Unavailable Unavailable Durham, Antolin SANCHEZ Unavailable Unavailable Durham, Antolin SANCHEZ Unavailable Unavailable Durham, Antolin SANCHEZ Unavailable Unavailable Durham, Antolin SANCHZE Unavailable Unavailable Durham, Antolin SANCHEZ Unavailable Unavailable Herminio, Antolin SANCHEZ Unavailable Unavailable Landis Paris, Bradford Dangelo MD, FACS Unavailable Unavailable Landis Paris, Bradford Dangelo MD, FACS Unavailable Unavailable Landis Paris, Bradford Dangelo MD, FACS Unavailable Unavailable Landis Paris, Bradford Dangelo MD, FACS Unavailable Unavailable Landis Paris, Bradford Dangelo MD, FACS Unavailable Unavailable Landis Paris, Bradford Dangelo MD, FACS Unavailable Unavailable Landis Paris, Bradford Dangelo MD, FACS Unavailable Unavailable Landis Paris, Bradford Dangelo MD, FACS Unavailable Unavailable Landis Paris, Bradford Dangelo MD, FACS Unavailable Unavailable Landis Paris, Bradford Dangelo MD, FACS Unavailable Unavailable Landis Paris, Bradford Dangelo MD, FACS Unavailable Unavailable Landis Paris, Bradford Dangelo MD, FACS Unavailable Unavailable Landis Paris, Bradford Dangelo MD, FACS Unavailable Unavailable Landis Paris, Bradford Dangelo MD, FACS Unavailable Unavailable Landis Paris, Bradford Dangelo MD, FACS Unavailable Unavailable Landis Paris, Bradford Dangelo MD, FACS Unavailable Unavailable Landis Paris, Bradford Dangelo MD, FACS Unavailable Unavailable Landis Paris, Bradford Dangelo MD, FACS Unavailable Unavailable Landis Paris, Bradford Dangelo MD, FACS Unavailable Unavailable Landis Paris, Bradford Dangelo MD, FACS Unavailable Unavailable Landis Paris, Bradford Dangelo MD, FACS Unavailable Unavailable Landis Paris, Bradford Dangelo MD, FACS Unavailable Unavailable Landis Paris, Bradford Dangelo MD, FACS Unavailable Unavailable Landis Paris, Bradford Dangelo MD, FACS Unavailable Unavailable Landis Paris, Bradford Dangelo MD, FACS Unavailable Unavailable Alndis Paris, Bradford Dangelo MD, FACS Unavailable Unavailable Landis Paris, Bradford Dangelo MD, FACS Unavailable Unavailable Landis Paris, Bradford Dangelo MD, FACS Unavailable Unavailable Landis Paris, Bradford Dangelo MD, FACS Unavailable Unavailable Landis Paris, Bradford Dangelo MD, FACS Unavailable Unavailable Landis Paris, Bradford Dangelo MD, FACS Unavailable Unavailable Landis Paris, Bradford Dangelo MD, FACS Unavailable Unavailable Landis Paris, Bradford Dangelo MD, FACS Unavailable Unavailable Landis Paris, Bradford Dangelo MD, FACS Unavailable Unavailable Landis Paris, Bradford Dangelo MD, FACS Unavailable Unavailable Landis Paris, Bradford Dangelo MD, FACS Unavailable Unavailable Landis Paris, Bradford Dangelo MD, FACS Unavailable Unavailable Landis Paris, Bradford Dangelo MD, FACS Unavailable Unavailable Landis Paris, Bradford Dangelo MD, FACS Unavailable Unavailable Re-disclosure Warning The records that you are about to access may contain information from federally-assisted alcohol or drug abuse programs. If such information is present, then the following federally mandated warning applies: This information has been disclosed to you from records protected by federal confidentiality rules (42 CFR part 2). The federal rules prohibit you from making any further disclosure of this information unless further disclosure is expressly permitted by the written consent of the person to whom it pertains or as otherwise permitted by 42 CFR part 2. A general authorization for the release of medical or other information is NOT sufficient for this purpose. The Federal rules restrict any use of the information to criminally investigate or prosecute any alcohol or drug abuse patient.The records that you are about to access may contain highly sensitive health information, the redisclosure of which is protected by Article 27-F of the [facility] Public Health law. If you continue you may have access to information: Regarding HIV / AIDS; Provided by facilities licensed or operated by the [facility] Office of Mental Health; or Provided by the [facility] Office for People With Developmental Disabilities. If such information is present, then the following [facility] mandated warning applies: This information has been disclosed to you from confidential records which are protected by state law. State law prohibits you from making any further disclosure of this information without the specific written consent of the person to whom it pertains, or as otherwise permitted by law. Any unauthorized further disclosure in violation of state law may result in a fine or prison sentence or both. A general authorization for the release of medical or other information is NOT sufficient authorization for further disc losure. Encounters Encounter Providers Location Date Indications Data Source(s ) Outpatient Attender: Jose Ma MD Main Office 05/23/2021 08:45:00 AM EDT [facility] ([facility]) Unknown [address] [facility] [address] 05/10/2021 12:00:00 AM EDT [facility]CW1 ([facility]) <td ID="encounterTypeDescriptionID0">1 Y ear Follow-Up</td><td>Antolin Paris MD, FACS</td><td>Antolin Schumacher MD [facility]</td><td>05/03/2021</td><td>6:54AM</td><td>7:30AM</td><td></td>Outpatient Attender: Antolin Paris MD, FACS Antolin Schumacher MD [facility] 05/03/2021 06:54:0 0 AM EDT - 05/03/2021 07:30:00 AM EDT [facility] (Antolin Paris MD [facility]) Outpatient Attender: Antolin Niño/Columba/Demario/Rein dl 03/30/2021 08:30:00 AM EDT [facility] ([facility]) Outpatient [address] [facility] [address] 03/27/2021 12:00:00 AM EDT [facility] [place] [place] [address] [facility] [address] [place] [address] 03/27/2021 12:00:00 AM EDT [facility]CW1 ([facility] [place] [place] [address] [facility] [address] [place] [address] 10/14/2020 12:00:00 AM EST [facility]CW1 ([facility] [place]) [place] [address] [facility] [address] [place] [address] 08/15/2020 12:00:00 AM EST eCW1 ([facility] [place]) Unknown [address] [facility] [place] [address] 08/15/2020 12:00:00 AM EST [facility]CW1 ([facility] [place]) Unknown [address] [facility] [place] [address] 08/02/2020 12:00:00 AM EST eCW[facility] ([facility]) Immunizations Vaccine Date Status Description Data Source(s) COVID-19 VACC, MRNA(PFIZER)/PF 05/15/2021 12:00:00 AM EDT completed [facility] COVID-19 VACCINE Pfizer 05/15/2021 12:00:00 AM EDT completed [facility] Vaccine Series Complete: YESThis Data wa s Submitted to [facility] COVID-19 dose #2 given elsewhere Unspecified 08/30/2020 06:3 7:00 AM EST completed eCW1 ([facility]) COVID-19 dose #2 given elsewhere Unspecified 08/30/2020 06:3 7:00 AM EST completed eCW1 ([facility]) COVID-19 dose #2 given elsewhere Unspecified 08/30/2020 06:3 7:00 AM EST completed eCW1 ([facility]) COVID-19 VACCINE Pfizer 08/30/2020 12:00:00 AM EST completed [facility] Vaccine Series Complete: YESThis Data wa s Submitted to [facility] COVID-19 dose #1 given elsewhere Unspecified 08/09/2020 06:3 6:00 AM EST completed eCW1 ([facility] hospital) COVID-19 dose #1 given elsewhere Unspecified 08/09/2020 06:3 6:00 AM EST completed eCW1 ([facility] hospital) COVID-19 dose #1 given elsewhere Unspecified 08/09/2020 06:3 6:00 AM EST completed eCW1 ([facility] access hospital) COVID-19 VACCINE Pfizer 08/09/2020 12:00:00 AM EST completed [facility] Vaccine Series Complete: NOThis Data was Submitted to [facility] TB Skin test is not vaccine. 08/01/2020 08:42:00 AM EST completed [facility] ([facility]) Medications Medication Brand Name Start Date Product Form Dose Route Admi nistrative Instructions Pharmacy Instructions Status Indications Reaction Description Data Source(s) 240 mcg/0.7 mL 06/09/2021 12:00:00 AM EDT syringe 0 INJECT DIRECTED INJECT DIRECTED SOLD: 06/09/2021 [facility] pantoprazole 40 MG Delayed Release Oral Tablet PANTOPRAZOLE SODIUM 05/23/2021 12:00:00 AM EDT tablet,delayed release (DR/EC) 90 T MARION ONE TABLET BY MOUTH EVERY MORNING TAKE ONE TABLET BY MOUTH EVERY MORNING SOLD: 05/23/2021 [facility] pantoprazole 40 MG Delayed Release Oral Tablet Pantoprazole Sodium 05/23/2021 12:00:00 AM EDT ORAL active M [facility] ([facility]) Insurance Providers Payer name Policy type / Coverage type Policy ID Covered republican ID Covered republican's relationship to rincon Policy Rincon Plan Information [place]/806 [id number] [place] [id number] [place] [id number] [place] [id number] MEDICARE [id number] SP [id number] A EXCELLUS BCBS [id number] Unk VYS [id number] [place] PPO 302/307 [id number] [place] [id number] SELF PAY ONLY [id number] SP [id number] [employer] BCBS B [id number] P VYS [id number] Excell[employer] BCBS [id number] Blue Cross/Shield [id number] Excell[employer] Blue Cross and Blue Shield [id number] Blue Cross/Shield [id number] EXCELLUS BLUE CROSS BLUE SHIELD HEA [id number] S [id number] BCBS of [facility] 0 [id number] Famil y Dependent Dallasfrancisco Liocnajustin 0 Excell[employer] Blue Cross and Blue Shield [id number] Blue Cross/Shield [id number] ANSI-Commercial [id number] ANSI-Medicare Part B [id number] ANSI-Medicare Part B [id number] ANSI-Commercial [id number] ANSI-Medicare Part B [id number] ANSI-Medicare Part B [id number] ANSI-Medicare Part B [id number] ANSI-Commercial [id number] ANSI-Medicare Part B [id number] ANSI-Medicare Part B [id number] ANSI-Commercial [id number] ANSI-Medicare Part B [id number] [facility]-Medicare Part B [id number] ANSI-Commercial [id number] [facility] B [id number] MEDICARE [id number] SP [id number] A EXCELLUS BCBS P [id number] P VYS [id number] EXCELLUS BCBS P [id number] P [id number] [id number] EXCELLUS BCBS P UNAVAILABLE S UNAV AILABLE [place] P[place] 302/307 [id number] WI2 [id number] BCBS of [facility] Other 0 [id number] Famil y Dependent Shahandeh Haghir 0 [place] 306/806 [id number] WI2 [id number] MEDICARE [id number] SP [id number] A BCBS [place] PPO 302/307 [id number] [place]2 [id number] Problems, Conditions, and Diagnoses Code Display Name Description Problem Type Effective Dates Data Source(s) 23143492 Abdominal pain Abdominal pain Problem 05/23/2021 12:00: 00 AM EDT [facility] ([facility]) 68180027 Essential hypertension Essential hypertension Problem 03/30/2021 12:00:00 AM EDT [facility] ([facility] ) E53.8 [id number] Vitamin B12 deficiency Problem 08/02/2020 12 :00:00 AM EST eCW1 ([facility]) Surgeries/Procedures Procedure Description Date Indications Data Source(s) OFFICE OUTPATIENT NEW 30 MINUTES 05/23/2021 12:00:00 A M EDT [facility] ([facility]) OFFICE OUTPATIENT NEW 30 MINUTES 03/30/2021 12:00:00 A M EDT [facility] ([facility] ) Results No Information Social History Code Duration Value Status Description Data Source(s ) Smoking 06/17/2021 10:23:25 AM EDT Never smoked tobacco (findi ng) completed Never smoked tobacco (finding) [facility] (Antolin Paris MD [facility]) Smoking 03/30/2021 12:00:00 AM EDT Patient has never smoked co mpleted Patient has never smoked [facility] ([facility] ) Smoking 03/27/2021 12:00:00 AM EDT Never Smoker completed Never S moker eCW1 ([facility]) Smoking 03/27/2021 12:00:00 AM EDT Never Smoker completed Never S moker eCW1 ([facility]) Smoking 03/27/2021 12:00:00 AM EDT Never Smoker completed Never S moker eCW1 ([facility]) Vital Signs ID Date Data Source UNK Name Value Range Interpretation Code Description Data Source(s) Body height 68 [in_i] 68 [in_i] [facility] ([facility]) 5'8" Body weight 156.00 [lb_av] 156.00 [lb_av] MEDEN T ([facility]) Systolic blood pressure 130 mm[Hg] 130 mm[Hg] M [facility]ENT ([facility]) Diastolic blood pressure 86 mm[Hg] 86 mm[Hg] [facility] ([facility]) Heart rate 86 /min 86 /min [facility]) Body mass index (BMI) [Ratio] 23.7 kg/m2 23.7 k g/m2 [facility] ([facility]) Body weight 70.762 kg 70.762 kg [facility] ([facility] Body temperature 97.7 [degF] 97.7 [degF] [facility] ([facility]) Body weight 155.6 [lb_av] 155.6 [lb_av] eCW1 ([facility]) Respiratory rate 18 /min 18 /min eCW1 ([facility]) Body height 69 [in_i] 69 [in_i] eCW1 ([facility]) Body temperature 98.3 [degF] 98.3 [degF] eCW1 ( [facility]) Body mass index (BMI) [Ratio] 22.98 kg/m2 22.98 kg/m2 eCW1 ([facility]) Systolic blood pressure 128 mm[Hg] 128 mm[Hg] e CW1 ([facility]) Diastolic blood pressure 84 mm[Hg] 84 mm[Hg] eCW1 ([facility]) Heart rate 89 /min 89 /min W1 ([facility])
--- OUTSIDE RECORDS SUMMARY | 2021-06-30 09:19 | CCD ---
Author Author [facility] [email or web address] [facility] Organization [facility] [email or web address] [facility] Address Unknown Phone Unavailable Care Team Providers Care Automotive Quality Manager Name Role Phone Pal Wheatley Unavailable PROBLEMS Type Condition ICD9-CM Code [id number] Code Onset Dates Condition S tatus W/U Status Risk SNOMED Code Notes Problem Encounter for long-term (current) use of other medications Z79.899 Active confirmed [id number] Labs are monitor ed regularly and last done in January 2018, pending in February 2019. Problem Vitamin B12 deficiency E53.8 Active confirmed 840493976 His level was 233 in February 2017 and he is on supplementation with a B12 level of 672 in February 2021. Problem Palpitations R00.2 Active confirmed 0784887 2 There is a history of palpitations likely related to PVCs and this is really not an active issue. His cardiac function has been normal on previous testing. He has an Apple Watch and can see his PVCs. Problem Arthritis M19.90 Active confirmed 4769254 Problem Vitamin D deficiency E55.9 Active confirmed 74490598 He is vitamin D deficient and is on supplementation. Most recent vitamin D level was 46.5 in February 2021. Problem Abnormal ECG R94.31 Active confirmed 2817383 03 He has nondiagnostic Q waves in the inferior leads and there has been no change on his EKG at least dating back to 2008. He had a radionuclide stress test in 2008 which showed no reversible ischemia and normal left ventricular function; this was similar on stress echo in 10/2012. He has excellent exercise tolerance. He denies any chest pain. Problem Insomnia G47.00 Active confirmed 115397818 A n issue in the past; it is relatively quiescent at present. Problem Hypertension I10 Active confirmed 9124634 3 He was started on antihypertensive therapy in 2015. Blood pressure is controlled. He takes lisinopril 10 mg daily. He monitors home readings also. Problem Hypercholesterolemia E78.00 Active confirmed 86156930 On simvastatin, which was started in . Lipids have historically been controlled, and were last checked and were optimal in February 2021. ALLERGIES Allergen (clinical drug ingredient) Drug/Non Drug Allergy do cumented on EMR Reaction Allergy Type Onset Date Status IV Contrast Dye Hives Drug Allergy Active ENCOUNTERS from 1950 to 2021-05-10 Encounter Location Date Provider Diagnosis [facility] [address] [facility] [phone] [place] [address] Apr, Pal Corry Hypercholesterolemia E78.00 IMMUNIZATIONS Vaccine Route Administration Date Status COVID-19 dose #2 given elsewhere Unspecified Unknown Aug 30, 2020 Administered COVID-19 dose #1 given elsewhere Unspecified Unknown Aug 09, 2020 Administered Zoster 50mcg/0.5mL Shingrix Unknown February 03, 2020 Admi nistered Zoster 50mcg/0.5mL Shingrix Unknown Jul 25, 2019 Admi nistered Zoster 0.65mL Zostavax Unknown Apr 06, 2015 Administe red Pneumococcal Adult 0.5mL Pneumovax 23 IM Intramuscular March 07, 2016 Administered TDAP 0.5mL (Boostrix) IM Intramuscular March 10, 2019 Administe red Pneumococcal 0.5mL Prevnar 13 Unknown December 21, 2014 Ad ministered SOCIAL HISTORY Tobacco Use: Social History Observation Description Date Details (start date - stop date) Never Smoker Sex Assigned At : Social History Observation Description Sex Assigned At Unknown Education: Question Answer Notes Level of Education: Professional Schools/Masters/PhD Audit Question Answer Notes Total Score: 3 Interpretation: Alcohol Education Language: Question Answer Notes Languages spoken: Swedish Anglican: Question Answer Notes Anglican No mormonism beliefs that would impact health care. Domestic Violence: Question Answer Notes Status: Sexual Hx: Question Answer Notes Had sex in the last 12 months (vaginal, oral, or anal)? Yes Have you ever had an STD? No with Women only Drug and Alcohol Question Answer Notes Total Score: 0 Interpretation: No problems reported Alcohol Screening: Question Answer Notes Did you have a drink containing alcohol in the past year? Ye s Points 3 Interpretation Negative How often did you have six or more drinks on one occas ion in the past year? Never (0 points) How many drinks did you have on a typica l day when you were drinking in the past year? 1 or 2 (0 points) How often did you have a drink containing alcohol in t he past year? Two to three times per week (3 points) Tobacco Use: Question Answer Notes Are you a: never smoker never smoker REASON FOR REFERRAL No Information VITAL SIGNS No information MEDICATIONS Medication SIG (Take, Route, Frequency, Duration) Notes Start Da te End Date Status Lisinopril 10 MG 1 tablet Orally Once a day for 90 days Active Zocor 20 MG 1 tablet in the evening Orally Once a day for 90 day(s) Active Aspirin 81 MG 1 tablet Orally Once a day Active Finasteride 5 MG 1 tablet Orally Once a day for 90 days December, Active PROCEDURES No Information RESULTS No Results REASON FOR VISIT refill-zocor and proscar MEDICAL (GENERAL) HISTORY Type Description Date Medical History Hypertension Medical History Hypercholesterolemia Medical History Abnormal ECG Medical History Palpitations Medical History Insomnia Medical History Arthritis Surgical History Colonoscopy and upper endoscopy 03/2003 Surgical History Lumbar laminectomy, L4 complete L3 & L5 half 04/03/2012 Surgical History Colonoscopy and upper endoscopy 2015 Goals Section No Information Health Concerns No Information MEDICAL EQUIPMENT No Information MENTAL STATUS No Information FUNCTIONAL STATUS No Information ASSESSMENTS Encounter Date Diagnosis Assessment Notes Treatment Notes Treatm ent Clinical Notes Apr, Hypercholesterolemia (ICD-10 - E78.00) PLAN OF TREATMENT Medication Medication Name Sig Start Date Stop Date Finasteride 5 MG 1 tablet Orally Once a day for 90 days December, Zocor 20 MG 1 tablet in the evening Orally Once a day for 90 day(s) Next Appt Details Provider Name:Pal Wheatley, 2022-03-12 07 :30:00 AM, [address] [facility], , [place], [address], Insurance Providers Payer Name Payer Address Payer Phone Insured Name Patient Relati onship to Insured Coverage Start Date Coverage End Date BCMIGUELITO UTIGISELLE BLANCO PPO [id number] [facility] [place] [address] TOMMIE PANDYA MEDICARE PART A ONLY [facility] [address] [facility] [id number] [facility]-35 [id number] TOMMIE PANDYA self
--- OUTSIDE RECORDS SUMMARY | 2021-06-30 09:19 | CCD | Continuity of Care Document ---
Author Author Gilda HUGGINS MD Organization Unknown Address [id number] , [facility] [place] [address] Phone [phone] Care Team Providers Care Furnace Converter Name Role Phone Pal Wheatley M.D. AUTM [phone] Problems Active Problems Provider Date Essential hypertension Antolin Huggins MD Onset: 03/30/2021 Social History Type Date Description Comments Sex Unknown ETOH Use Occasionally consumes alcohol Tobacco Use Start: Unknown Patient has never smoked Recreational Drug Use Denies Drug Use Smoking Status Reviewed: 03/30/21 Patient has never smoked Allergies, Adverse Reactions, Alerts Active Allergies Reaction Severity Comments Date NKDA 03/30/2021 Radioactive Iodine possible. hiv es a long time ago. Recently has had no problem 03/30/2021 Medications Active Medications SIG Qnty Indications Ordering Provide r Date Simvastatin 20mg Tablets Take 1 Tablet By Mouth Every Evening Unknown Lisinopril 10mg Tablets Pal Wheatley M.D. Aspirin 81 Low Dose 81mg Chewtabs 1 by mouth every day Unknown Immunizations Description No Information Available Vital Signs Description No Information Available Results Description No Information Available Procedures Date Code Description Status 03/30/2021 70486 Office/Outpatient New Low MDM 30 -44 Minutes Completed Medical Devices Description No Information Available Encounters Type Date Location Provider Dx Diagnosis Office Visit 03/30/2021 8:30a [facility] Antolin Huggins MD M21.6x1 Other acquired deformities of right foot M79.671 Pain in right foot Assessments Date Code Description Provider 03/30/2021 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 There is evidence of a lateral talar dome osteochondral defect with pain in the anterior lateral joint line and into the lateral aspect of the forefoot. I would like to evaluate the ankle and forefoot for any soft tissue injuries and to evaluate for any loose bodies and the extent of this osteochondral defect and acuity. I have ordered an MRI of the right foot and ankle. The patient will be placed in a ankle lace up brace for activities and I provided him with a home exercise program. * Follow up:* Post MRI. Patient may elect for in person or telephone follow-up visit at his request. * M79.671 Foot pain* New Xrays:* MRI Foot W/O Contrast Right, Ordered: 03/30/21 * Comments:* As above Functional Status Description No Information Available Mental Status Description No Information Available Referrals Description No Information Available
[2021-06-30] MEDS ORDERED: fentaNYL 100 MCG/2 ML INJECTION (J3010) As Ordered ONE (10:45)
[2021-06-30] MEDS ORDERED: propofoL 200 MG/20 ML VIAL As Ordered ONE (10:46)
[2021-06-30] MEDS ORDERED: LIDOCAINE 2% 100MG/5ML SDV (FOR ANES.) As Ordered ONE (10:46)
--- NOTE | 2021-06-30 11:31 | ROOR ---
Patient Name: Gilda Figueroa Procedure Date: 06/30/2021 11:15 AM Date of : 1950 Age: 71 Room: [facility] Gender: Male Note Status: Finalized Procedure: Upper Endoscopy + Biopsies Indications: Epigastric abdominal pain, Heartburn Providers: Jose Ma MD Referring MD: Pal Wheatley MD Requesting Provider: Medicines: Monitored Anesthesia Care Complications: No immediate complications. Procedure: Pre-Anesthesia Assessment: - The heart rate, respiratory rate, oxygen saturations, blood pressure, adequacy of pulmonary ventilation, and response to care were monitored throughout the procedure. The Endoscope was introduced through the mouth, and advanced to the second part of duodenum. The upper GI endoscopy was accomplished without difficulty. The patient tolerated the procedure well. Findings: The Z-line was variable and was found 40 cm from the incisors. Multiple biopsies were obtained with cold forceps for evaluation to rule out Herron's Esophagus randomly at the gastroesophageal junction. Localized moderate inflammation characterized by adherent blood, congestion (edema), erosions, erythema, granularity and mucus was found on the greater curvature of the stomach. Biopsies were taken with a cold forceps for Helicobacter pylori testing. The exam of the duodenum was otherwise normal. Impression: - Z-line variable, 40 cm from the incisors. - Mucosal changes suspicious for gastritis. Biopsied. - Multiple biopsies were obtained at the gastroesophageal junction. - The examination was otherwise normal. Recommendation: - Patient has a contact number available for emergencies. The signs and symptoms of potential delayed complications were discussed with the patient. Return to normal activities tomorrow. Written discharge instructions were provided to the patient. - High fiber diet. - Discharge patient to home. - Follow an antireflux regimen. - Continue present medications. - Await pathology results. - Telephone GI clinic for pathology results in 1 week. - Return to referring physician. - Use sucralfate tablets 1 gram PO BID. - The findings and recommendations were discussed with the patient. Procedure Code(s): --- Professional --- 89485, Esophagogastroduodenoscopy, flexible, transoral; with biopsy, single or multiple Diagnosis Code(s): --- Professional --- K22.8, Other specified diseases of esophagus K31.89, Other diseases of stomach and duodenum R10.13, Epigastric pain R12, Heartburn CPT copyright 2019 [employer]. All rights reserved. The codes documented in this report are preliminary and upon butadiene converter utility operator review may be revised to meet current compliance requirements. Jose Ma MD Jose Ma MD 06/30/2021 11:30:37 AM Electronically signed by Jose Ma MD Number of Addenda: 0 Note Initiated On: 06/30/2021 11:15 AM Estimated Blood Loss: Estimated blood loss: none.
--- NOTE | 2021-06-30 11:48 | ROOR ---
Patient Name: Gilda Figueroa Procedure Date: 06/30/2021 11:16 AM Date of : 1950 Age: 71 Room: [facility] Gender: Male Note Status: Finalized Procedure: Total Colonoscopy to Cecum Indications: Screening for colorectal malignant neoplasm Providers: Jose Ma MD Referring MD: Pal Wheatley MD Requesting Provider: Medicines: Monitored Anesthesia Care Complications: No immediate complications. Procedure: Pre-Anesthesia Assessment: - The heart rate, respiratory rate, oxygen saturations, blood pressure, adequacy of pulmonary ventilation, and response to care were monitored throughout the procedure. The Colonoscope was introduced through the anus and advanced to the cecum, identified by appendiceal orifice and ileocecal valve. The colonoscopy was performed without difficulty. The patient tolerated the procedure well. The quality of the bowel preparation was excellent. Findings: The perianal and digital rectal examinations were normal. Non-bleeding internal hemorrhoids were found during retroflexion. The hemorrhoids were small and Grade I (internal hemorrhoids that do not prolapse). Multiple small and large-mouthed diverticula were found in the entire colon. The exam was otherwise without abnormality on direct and retroflexion views. Impression: - Non-bleeding internal hemorrhoids. - Diverticulosis in the entire examined colon. - The examination was otherwise normal on direct and retroflexion views. - No specimens collected. - The exam was otherwise normal to the cecum. Recommendation: - Patient has a contact number available for emergencies. The signs and symptoms of potential delayed complications were discussed with the patient. Return to normal activities tomorrow. Written discharge instructions were provided to the patient. - High fiber diet. - Discharge patient to home. - Continue present medications. - Repeat colonoscopy PRN for screening purposes. - Return to referring physician. - The findings and recommendations were discussed with the patient. Procedure Code(s): --- Professional --- 14780, Colonoscopy, flexible; diagnostic, including collection of specimen(s) by brushing or washing, when performed (separate procedure) Diagnosis Code(s): --- Professional --- Z12.11, Encounter for screening for malignant neoplasm of colon K64.0, First degree hemorrhoids K57.30, Diverticulosis of large intestine without perforation or abscess without bleeding CPT copyright 2019 [employer]. All rights reserved. The codes documented in this report are preliminary and upon hi lift operator review may be revised to meet current compliance requirements. Jose Ma MD Jose Ma MD 06/30/2021 11:47:46 AM Electronically signed by Jose Ma MD Number of Addenda: 0 Note Initiated On: 06/30/2021 11:16 AM Estimated Blood Loss: Estimated blood loss: none.
[2021-06-30 12:17] VITALS: BP 127/65
== END 2021-06-30 12:29 | disposition home or self-care (01) ==
LOC: M OPP 09:14
PROVIDERS: ATTEND Internal Medicine Gastroenterology
DX: R12 Heartburn (principal); K64.0 First degree hemorrhoids; K57.30 Diverticulosis of large intestine without perforation or abscess without bleeding; K22.89 Other specified disease of esophagus; K31.89 Other diseases of stomach and duodenum; I10 Essential (primary) hypertension; Z91.041 Radiographic dye allergy status; Z12.11 Encounter for screening for malignant neoplasm of colon
CPT/HCPCS: 43239; 45378; 88305; J3010

== ENCOUNTER → 2021-11-02 | Outpatient (CLI) | payer BC ==
[~2021-11-02] MED LIST changes: -NS 1,000 ML IV ONE
[2021-11-02 11:48] LABS: BASO % 0.2 % (0.0-1.0); EOS # 0.1 10^3/uL (0.0-0.5); EOS % 2.4 % (0.0-3.0); HEMATOCRIT 42.9 % (42.0-52.0); LYMPH # 1.9 10^3/uL (1.5-5.0); MEAN CORPUSCULAR HEMOGLOBIN 28.4 pg (27.0-33.0); MEAN CORPUSCULAR HGB CONC 32.6 g/dl (32.0-36.5); MONO # 0.5 10^3/uL (0.0-0.8); MONO % 11.1 % (2.0-8.0); NEUTROPHILS # 1.7 10^3/uL (1.5-8.5); NEUTROPHILS % 40.1 % (36.0-66.0); PLATELET COUNT, AUTOMATED 224 10^3/uL (150-450); RED BLOOD COUNT 4.93 10^6/uL (4.30-6.10); WHITE BLOOD COUNT 4.2 10^3/uL (4.0-10.0)
[2021-11-02 12:16] LABS: ERYTHROCYTE SEDIMENTATION RATE 5 mm/hr (0-20)
[2021-11-02 14:13] LABS: ALBUMIN 4.1 GM/DL (3.2-5.2); ALT/SGPT 30 U/L (12-78); BILIRUBIN,TOTAL 0.4 MG/DL (0.2-1.0); BLOOD UREA NITROGEN 14 MG/DL (7-18); CALCIUM LEVEL 9.4 MG/DL (8.8-10.2); CARBON DIOXIDE LEVEL 32 MEQ/L (21-32); CHLORIDE LEVEL 106 MEQ/L (98-107); CHOLESTEROL LEVEL 140 MG/DL (<200); CHOLESTEROL RISK RATIO 3.043 (<5); CREATININE FOR GFR 1.03 MG/DL (0.70-1.30); FREE T4 0.99 NG/DL (0.76-1.46); GLOMERULAR FILTRATION RATE > 60.0 (>42); GLUCOSE, FASTING 100 MG/DL (70-100); HDL CHOLESTEROL 46 MG/DL (>40); LDL CHOLESTEROL 79 MG/DL (<100); MAGNESIUM LEVEL 2.1 MG/DL (1.8-2.4); NON-HDL-C 94 MG/DL; POTASSIUM SERUM 4.6 MEQ/L (3.5-5.1); SODIUM LEVEL 143 MEQ/L (136-145); TOTAL 25(OH) VITAMIN D 46.2 NG/ML (30.0-100.0); TRIGLYCERIDES LEVEL 77 MG/DL (<150); VITAMIN B12 LEVEL 894 PG/ML (247-911)
[2021-11-02 16:10] LABS: HEMOGLOBIN A1c 5.7 %
== END ==
LOC: M PLALAB 08:02
PROVIDERS: ATTEND Internal Medicine
DX: E78.00 Pure hypercholesterolemia, unspecified (principal); I10 Essential (primary) hypertension; E53.8 Deficiency of other specified B group vitamins; E55.9 Vitamin D deficiency, unspecified; Z12.5 Encounter for screening for malignant neoplasm of prostate
CPT/HCPCS: 36415; 80053; 80061; 82306; 82607; 83036; 83735; 84439; 84443; 85025; 85652; G0103